=== PATIENT | female | born 1940 | race Caucasian/White ===

== ENCOUNTER 2017-07-19 11:22 | Emergency (ER) | payer MEDICARE ==
[2017-07-19 11:46] VITALS: BP 152/69
--- NOTE | 2017-07-19 11:54 | UC ---
Respiratory Complaint HPI - HPI Summary HPI Summary: 77 year old female with cough. Here w/ dry cough, sob, and tightness in chest starting Sunday07/13/17. States chest tightness worse when trying to cough up phelgm- denies any chest pain/numbness/tingling. Denies fever or chills. Tried robitussin dm w/ temporary relief. [ End ] - History of Current Complaint Chief Complaint: UCRespiratory Stated Complaint: COUGH Time Seen by Provider: 07/19/17 11:48 Hx Obtained From: Patient Onset/Duration: Gradual Onset - Allergies/Home Medications Allergies/Adverse Reactions: Allergies Allergy/AdvReac Type Severity Reaction Status Date / Time ENVIRONMENTAL Allergy SNEEZING, Uncoded 07/19/17 11:39 RUNNY NOSE Home Medications: Home Medications Albuterol inh POWDER (NF) [Proair Respiclick] 2 inh Q4HR PRN 07/19/17 [History Confirmed 07/19/17] Budesonide/Formote 160/4.5(NF) [Symbicort 160/4.5 (NF)] 2 puff INH BID 07/19/17 [History Confirmed 07/19/17] Diclofenac Sodium (Topical) [Diclofenac Sodium] 1 applic QID PRN 07/19/17 [ History Confirmed 07/19/17] Diltiazem CD CAP* [Cardizem CD CAP*] 240 mg BEDTIME 07/19/17 [History Confirmed 07/19/17] Folic Acid TAB* [Folvite TAB*] 1 tab DAILY 07/19/17 [History Confirmed 07/19/17] Furosemide TAB* [Lasix TAB*] 1 - 2 tab DAILY PRN 07/19/17 [History Confirmed 02/28] Levothyroxine TAB* [Synthroid TAB*] 50 mcg QAM 07/19/17 [History Confirmed 07/19] Magnesium Gluconate [Magnesium] 1 - 2 tab DAILY 07/19/17 [History Confirmed 02/28] Methotrexate TAB* 1 tab WEEKLY 07/19/17 [History Confirmed 07/19/17] Omeprazole CAP* [Prilosec CAP* 20 MG] 1 cap DAILY 07/19/17 [History Confirmed ] Polyethylene Glycol 3350* [Miralax*] 1 packet DAILY 07/19/17 [History Confirmed 07/19/17] Terazosin CAP* [Hytrin CAP*] 2 mg PO BEDTIME 07/19/17 [History Confirmed ] PMH/Surg Hx/FS Hx/Imm Hx Previously Healthy: Yes - Surgical History Surgical History: Yes Surgery Procedure, Year, and Place: LEFT/RIGHT CATARACT, 2006, [facility] - Family History Known Family History: Positive: None - Social History Occupation: Retired Lives: With Family Alcohol Use: None Substance Use Type: None Smoking Status (MU): Never Smoked Tobacco - Immunization History Most Recent Influenza Vaccination: JUN 2017 Review of Systems Constitutional: Fatigue ENT: Sore Throat, Ear Ache, Nasal Discharge, Sinus Congestion Respiratory: Cough Is Patient Immunocompromised?: No All Other Systems Reviewed And Are Negative: Yes Physical Exam Triage Information Reviewed: Yes Appearance: Well-Appearing, No Pain Distress, Well-Nourished Vital Signs: Initial Vital Signs Temp 98 F 07/19/17 11:41 Pulse 79 07/19/17 11:41 Resp 18 07/19/17 11:41 BP 152/69 07/19/17 11:41 Pulse Ox 97 07/19/17 11:41 Vital Signs Reviewed: Yes Eye Exam: Normal ENT Exam: Normal Dental Exam: Normal Neck exam: Normal Neck: Positive: 1 Respiratory Exam: Normal Cardiovascular Exam: Normal Musculoskeletal Exam: Normal Neurological Exam: Normal Psychological Exam: Normal Skin Exam: Normal UC Diagnostic Evaluation - Laboratory O2 Sat by Pulse Oximetry: 97 Respiratory Course/Dx - Course Course Of Treatment: concern this may progress to pneumonia if not addressed -- f/u pcp - Differential Dx/Diagnosis Differential Diagnosis/HQI/PQRI: Bronchitis, Laryngitis, Sinusitis Provider Diagnoses: Bronchitis Discharge - Discharge Plan Condition: Good Disposition: HOME Prescriptions: Benzonatate CAP* [Tessalon 100 MG CAP*] 100 mg PO TID #20 cap Cefuroxime Axetil [Ceftin 500 MG TAB] 500 mg PO BID #20 tab Patient Education Materials: Acute Bronchitis (ED) Referrals: Donavan Burnett DO [Primary Care Provider] - 4 Days
== END 2017-07-19 12:18 | disposition home or self-care (01) ==
LOC: UCCORT 11:22
DX: J40 Bronchitis, not specified as acute or chronic (principal); J30.2 Other seasonal allergic rhinitis
CPT/HCPCS: 99212; G0463

== ENCOUNTER 2017-09-15 19:13 | Emergency (ER) | payer MEDICARE ==
[2017-09-15 20:14] VITALS: BP 160/70
--- NOTE | 2017-09-15 20:41 | UC ---
Lower Extremity/Ankle HPI - HPI Summary HPI Summary: C/O left calf tingling pain from this morning while in the shower. - History of Current Complaint Chief Complaint: UCLowerExtremity Stated Complaint: LEFT LEG PAIN Time Seen by Provider: 09/15/17 20:13 Hx Obtained From: Patient Onset/Duration: Sudden Onset, Lasting Hours - 10, Still Present Severity Initially: Mild Severity Currently: Moderate Aggravating Factor(s): Standing - worse with doing dishes. Able to Bear Weight: Yes - Allergies/Home Medications Allergies/Adverse Reactions: Allergies Allergy/AdvReac Type Severity Reaction Status Date / Time ENVIRONMENTAL Allergy SNEEZING, Uncoded 09/15/17 20:14 RUNNY NOSE Home Medications: Home Medications Ascorbic Acid TAB* [Vitamin C TAB*] 1,000 mg PO DAILY 09/15/17 [History Confirmed 09/15/17] B-Complex W/Biotin & Folic Aci [Super B-Complex] 1 tab PO DAILY 09/15/17 [ History Confirmed 09/15/17] Cholecalciferol [Vitamin D3] 2,000 unit PO DAILY 09/15/17 [History Confirmed 12/01] Probiotic Product [Acidophilus] 1 cap PO DAILY 09/15/17 [History Confirmed 09/15] PMH/Surg Hx/FS Hx/Imm Hx - Additional Past Medical History Additional PMH: Psoriatic arthritis Cardiovascular History: Hypertension Respiratory History: Asthma - Surgical History Surgical History: Yes Surgery Procedure, Year, and Place: LEFT/RIGHT CATARACT, 2006 & 2012, [facility] [place] - Family History Known Family History: Positive: Diabetes - Social History Occupation: Retired Lives: Alone Alcohol Use: None Substance Use Type: None Smoking Status (MU): Former Smoker Have You Smoked in the Last Year: No - Immunization History Most Recent Influenza Vaccination: JUN 2017 Review of Systems Neurological: Paresthesia Is Patient Immunocompromised?: No All Other Systems Reviewed And Are Negative: Yes Physical Exam Triage Information Reviewed: Yes Appearance: Well-Appearing, No Pain Distress, Well-Nourished Vital Signs: Initial Vital Signs Temp 98.3 F 09/15/17 20:02 Pulse 65 09/15/17 20:02 Resp 20 09/15/17 20:02 BP 160/70 09/15/17 20:02 Vital Signs Reviewed: Yes Eyes: Positive: Conjunctiva Clear Neck exam: Normal Respiratory Exam: Normal Cardiovascular Exam: Normal Musculoskeletal: Positive: Edema @ - bilateral 2+, Other: - negative homans. Neurological Exam: Other - DTR 2+ patella and absent bilateral achilles. Neurological: Positive: Other: - hyperaesthesia to pinprick on the lateral left lower leg L5 dermatome Psychological Exam: Normal Skin Exam: Normal Diagnostics - Radiology No standard instances Xray Interpretation: No Acute Changes Radiology Interpretation Completed By: ED Physician Lower Extremity Course/Dx - Differential Dx/Diagnosis Differential Diagnosis/HQI/PQRI: Contusion, Phlebitis, Sprain, Strain Provider Diagnoses: Lumbar radiculopathy Discharge - Discharge Plan Condition: Stable Disposition: HOME Prescriptions: predniSONE TAB* [Deltasone TAB*] 20 mg PO DAILY #18 tab Patient Education Materials: Lumbar Radiculopathy (ED), Prednisone (By mouth) Referrals: Donavan Burnett DO [Primary Care Provider] - 5 Days
--- NOTE | 2017-09-15 21:08 | RAD ---
INDICATION: Left leg radiculopathy COMPARISON: CT abdomen pelvis dated November 10, 2013 TECHNIQUE: 5 views of the lumbar spine were obtained. FINDINGS: Multilevel degenerative changes of the lower thoracic and lumbar spine includes loss of intervertebral disc height and marginal osteophyte formation. There is vacuum disc phenomenon with mild endplate sclerosis at L4/L5. At this same level there is slight grade 1 L4 over L5 anterolisthesis. There is no evidence of an acute fracture or dislocation. IMPRESSION: Degenerative changes of the lumbar spine similar in appearance to the November 10, 2013 CT examination.
== END 2017-09-15 21:23 | disposition home or self-care (01) ==
LOC: UCCORT 19:13
DX: M54.16 Radiculopathy, lumbar region (principal); I10 Essential (primary) hypertension; J45.909 Unspecified asthma, uncomplicated; Z87.891 Personal history of nicotine dependence
CPT/HCPCS: 72110; 99212; G0463

== ENCOUNTER 2020-04-23 07:15 | Observation (INO) ==
[~2020-04-23 07:15] MED LIST: Buffered Lidocaine 1% SYRIN 1 ml INTRADERM ONE; Lactated Ringers 1000 ml BAG 1,000 ML IV SCH
[2020-04-23] MEDS ORDERED: ceFAZolin 2 GM PREMIX in ORs 2 GM/50 ML BAG ONE (07:57)
[2020-04-23] MEDS ORDERED: ROPIVACAINE 5 MG/ML 30 ML BTL (0.5%) ONE (08:33)
[2020-04-23] MEDS ORDERED: Midazolam 2 mg/2 ml VIAL 1 mg/ml 2 ml VIAL (2 mg) ONE (08:47)
[2020-04-23] MEDS ORDERED: Bupivacaine 0.5% SDV PF 30ML VIAL ONE ×2 (08:58→11:07)
[2020-04-23] MEDS ORDERED: Bupivacaine 0.5% 50 ML MDV VIAL ONE (09:09)
[2020-04-23] MEDS ORDERED: Propofol 10 MG/ML 20 ML BTL ONE ×2 (10:21→11:07)
[2020-04-23] MEDS ORDERED: EPHEDrine (Pressors) 50 MG/ML VIAL ONE (10:46)
[2020-04-23] MEDS ORDERED: Naloxone 0.4 mg VIAL 0.4 mg/ml 1 ml VIAL IV PRN (11:02)
[2020-04-23] MEDS ORDERED: Magnesium Hydroxide LIQ 30 ML UDC PO PRN (11:55)
[2020-04-23] MEDS ORDERED: oxyCODONE/Acetamin 5/325 mg TAB PO PRN (11:55)
[2020-04-23] MEDS ORDERED: Lactulose 30 ml UDC PO PRN (11:55)
[2020-04-23] MEDS ORDERED: diPHENhydraMINE IV 50 MG/ML 1 ml VIAL (BENADRYL) IV PRN (11:55)
[2020-04-23] MEDS ORDERED: diPHENhydraMINE 25 mg TAB PO PRN (11:55)
[2020-04-23] MEDS ORDERED: Ondansetron 4 mg VIAL 2 MG/ML 2 ml VIAL IV PRN (11:55)
[2020-04-23] MEDS ORDERED: Ondansetron ODT 4 mg TAB 4 MG TAB PO PRN (11:55)
[2020-04-23] MEDS ORDERED: Albuterol HFA INHALER 8 gm MDI INH PRN (12:00)
[2020-04-23] MEDS ORDERED: CMC:Pilocarpine 5 mg TAB (NF) PO PRN (12:00)
[2020-04-23] MEDS: Lactated Ringers 1000 ml BAG 1,000 ML IV SCH (13:49)
[2020-04-23] MEDS ORDERED: Lactated Ringers 1000 ml BAG 1,000 ML IV SCH (17:23)
[2020-04-23] MEDS: ceFAZolin 1 GM ADVAN(*) 1 GM in NS 0.9% 50 ML 50 ML IVPB SCH (18:24)
[2020-04-23] MEDS: Magnesium Hydroxide LIQ 30 ML UDC PO SCH ×2 (22:19→22:21)
[2020-04-24] MEDS: Lactated Ringers 1000 ml BAG 1,000 ML IV SCH (00:21)
[2020-04-24] MEDS: ceFAZolin 1 GM ADVAN(*) 1 GM in NS 0.9% 50 ML 50 ML IVPB SCH ×2 (02:07→10:54)
[2020-04-24] MEDS: Magnesium Hydroxide LIQ 30 ML UDC PO SCH (08:02)
[2020-04-24] MEDS ORDERED: Vitamin THERAPEUTIC TAB PO SCH (09:00)
[2020-04-24] MEDS ORDERED: VILANTER INH SCH (09:00)
[2020-04-24] MEDS ORDERED: UMECLIDIN MDI INH SCH (09:00)
[2020-04-24] MEDS ORDERED: MESALAMINE 1.2 GM PO SCH (09:00)
[2020-04-24] MEDS ORDERED: FLUTICASONE INH SCH (09:00)
[2020-04-24] MEDS ORDERED: Irbesartan 150 mg TAB (NF) PO SCH (09:00)
[2020-04-24 11:46] VITALS: BP 117/56
[2020-04-24 11:57] LABS: Hematocrit 29 % (35-47); Hemoglobin 10.2 g/dL (12.0-16.0); Mean Platelet Volume 6.8 fL (7.4-10.4); Platelet Count 242 10^3/uL (150-450)
[2020-04-24 12:13] LABS: BUN/Creatinine Ratio 10.5 (8-20); Calcium 8.9 mg/dL (8.6-10.3); EGFR African American 68.7 (>60); EGFR Non-African American 56.7 (>60); Potassium 3.7 mmol/L (3.5-5.0)
== END 2020-04-24 13:49 | disposition home or self-care (01) ==
LOC: SSU 07:15 → OR 07:15
PROVIDERS: ADMIT Physician Assistant; ATTEND Orthopaedic Surgery Adult Reconstructive Orthopaedic Surgery